=== PATIENT | male | born 1980 | race Hispanic/Latino ===

== ENCOUNTER 2019-01-04 09:30 | Emergency (ER) | payer BC, MEDICAID, OTHER ==
[2019-01-04] MEDS ORDERED: IBUPROFEN 600 MG TABLET ONE (09:53)
== END 2019-01-04 10:22 | disposition home or self-care (01) ==
LOC: EDH 09:30
DX: S92.511A Displaced fracture of proximal phalanx of right lesser toe(s), initial encounter for closed fracture (principal); J45.909 Unspecified asthma, uncomplicated; Z72.0 Tobacco use; W22.03XA Walked into furniture, initial encounter; Y93.89 Activity, other specified; Y92.098 Other place in other non-institutional residence as the place of occurrence of the external cause; Y99.8 Other external cause status
CPT/HCPCS: 73660

== ENCOUNTER 2021-10-18 23:07 | Inpatient (IN) | payer MEDICAID, OTHER ==
[~2021-10-18] VITALS: Ht 167.6 cm; Wt 90.7 kg
[2021-10-19] MEDS ORDERED: KETOROLAC 30MG VIAL (30MG/ML) IV ONE (00:30)
[2021-10-19] MEDS ORDERED: HYDROCODONE/ACETAMINOPHEN 5/325 MG TAB PO ONE (00:30)
[2021-10-19] MEDS ORDERED: CLINDAMYCIN IVPB 900MG/50ML 50 ML IV ONE (00:30)
[2021-10-19] MEDS ORDERED: METRONIDAZOLE 500 MG TABLET PO ONE (00:30)
[2021-10-19] MEDS ORDERED: 0.9%NACL 1000ML 1,000 ML IV ONE ×2 (00:30→03:30)
[2021-10-19 01:14] LABS: BASOPHILS % (AUTO) 0.3 % (0.0-5.0); CREATININE 1.4 mg/dL (0.5-1.5); EOSINOPHILS % (AUTO) 2.3 % (0.0-8.0); HEMATOCRIT 37.5 % (42-54); LYMPHOCYTES % (AUTO) 7.5 % (21.0-51.0); MEAN CORPUSCULAR HEMOGLOBIN 30.2 pg (27.0-33.0); MEAN CORPUSCULAR HGB CONC 34.7 g/dL (32.0-36.0); MONOCYTES % (AUTO) 4.4 % (3.0-13.0); NEUTROPHILS % (AUTO) 84.2 % (40.0-77.0); PLATELET COUNT (AUTO) 211 K/uL (130-400); POTASSIUM 3.2 mmol/L (3.5-5.1); RED BLOOD CELL COUNT(AUTO) 4.31 MIL/uL (4.50-6.20); RED CELL DISTRIBUTION WIDTH 13.8 % (11.0-15.5); WHITE BLOOD COUNT (AUTO) 17.2 K/uL (4.8-10.8)
[2021-10-19 01:19] LABS: BILIRUBIN,TOTAL 0.2 mg/dL (0.2-1.0); TOTAL PROTEIN, SERUM 6.5 g/dL (6.0-8.3)
[2021-10-19] MEDS ORDERED: IOHEXOL 350 MG/ML 100ML INFUS..BTL IV ONE (01:38)
[2021-10-19 01:58] LABS: APPEARANCE,URINE Clear (CLEAR); BILIRUBIN,URINE Negative (NEGATIVE); COLOR,URINE Yellow (YELLOW); GLUCOSE, URINE (UA) Negative (NEGATIVE); KETONES,URINE Negative (NEGATIVE); LEUKOCYTE ESTERASE ,URINE Negative (NEGATIVE); NITRATE,URINE Negative (NEGATIVE); OCCULT BLOOD,URINE Large (NEGATIVE); PH,URINE 5.5 (5.0-8.0); PROTEIN,URINE POS 1+ mg/dL (NEGATIVE)
[2021-10-19 02:13] LABS: BACTERIA,URINE Rare /HPF (None Seen); SQUAMOUS EPITHELIAL CELL,UR Rare /HPF (0-2)
[2021-10-19] MEDS ORDERED: MORPHINE 2 MG SYG IV PRN (04:00)
[2021-10-19] MEDS ORDERED: 0.9%NACL 1000ML 1,914 ML IV ONE (04:00)
[2021-10-19] MEDS ORDERED: KCL 20 MEQ ERTAB PO ONE ×2 (04:00→05:20)
[2021-10-19] MEDS ORDERED: DiphenhydrAMINE HCL 50 MG/ML VIAL IV PRN (04:00)
[2021-10-19] MEDS ORDERED: ONDANSETRON 4MG INJ IV PRN (04:00)
[2021-10-19] MEDS: 0.9%NACL 1000ML 1,000 ML IV SCH ×2 (05:19→14:00)
[2021-10-19] MEDS: ZOSYN 3.375GM +NS 50ML IV SCH ×3 (05:33→21:43)
[2021-10-19 05:40] LABS: AMPHET/METH SCREEN,URINE NEGATIVE (NEGATIVE); BARBITURATE SCREEN, URINE NEGATIVE (NEGATIVE); BENZODIAZEPINES SCREEN,URINE NEGATIVE (NEGATIVE); CANNABINOID SCREEN,URINE POSITIVE (NEGATIVE); COCAINE SCREEN,URINE POSITIVE (NEGATIVE); OPIATE SCREEN,URINE NEGATIVE (NEGATIVE); PHENCYCLIDINE SCREEN,URINE NEGATIVE (NEGATIVE)
[2021-10-19] MEDS: FAMOTIDINE 20MG VIAL IV SCH ×2 (08:10→21:16)
[2021-10-19] MEDS ORDERED: IOHEXOL-350 75 ML VIAL IV ONE (08:18)
[2021-10-19 08:32] LABS: INR 0.99 (0.85-1.15); PROTHROMBIN TIME 10.8 SEC (9.6-11.6)
[2021-10-19 08:33] LABS: PARTIAL THROMBOPLASTIN TIME 33.6 SEC (26.3-35.5)
[2021-10-19] MEDS: MORPHINE 4 MG SYG IV PRN ×3 (11:46→20:08)
[2021-10-19] MEDS ORDERED: METRONIDAZOLE 500MG/100ML BAG 100 ML IVPB SCH (12:00)
[2021-10-19] MEDS: METRONIDAZOLE 500 MG TABLET PO SCH ×3 (13:05→21:16)
[2021-10-19] MEDS ORDERED: 0.9%NACL 50ML 50 ML IV ONE (21:13)
[2021-10-20] MEDS: 0.9%NACL 1000ML 1,000 ML IV SCH (00:05)
[2021-10-20 02:55] VITALS: BP 121/79
[2021-10-20] MEDS: ACETAMINOPHEN 325 MG TAB PO PRN ×2 (03:19→11:03)
[2021-10-20] MEDS ORDERED: ALBU18HF7 IH (03:40)
[2021-10-20] MEDS: ZOSYN 3.375GM +NS 50ML IV SCH (05:29)
[2021-10-20 07:50] LABS: BASOPHILS % (AUTO) 0.5 % (0.0-5.0); HEMATOCRIT 38.3 % (42-54); LYMPHOCYTES % (AUTO) 12.5 % (21.0-51.0); MEAN CORPUSCULAR HEMOGLOBIN 29.3 pg (27.0-33.0); MEAN CORPUSCULAR HGB CONC 32.6 g/dL (32.0-36.0); MEAN CORPUSCULAR VOLUME 89.9 fL (79-99); MONOCYTES % (AUTO) 7.7 % (3.0-13.0); NEUTROPHILS % (AUTO) 76.7 % (40.0-77.0); PLATELET COUNT (AUTO) 198 K/uL (130-400); RED BLOOD CELL COUNT(AUTO) 4.26 MIL/uL (4.50-6.20); RED CELL DISTRIBUTION WIDTH 13.9 % (11.0-15.5); WHITE BLOOD COUNT (AUTO) 10.2 K/uL (4.8-10.8)
[2021-10-20 08:01] LABS: CREATININE 1.4 mg/dL (0.5-1.5); POTASSIUM 3.9 mmol/L (3.5-5.1)
[2021-10-20] MEDS: METRONIDAZOLE 500 MG TABLET PO SCH (08:44)
[2021-10-20] MEDS: FAMOTIDINE 20MG VIAL IV SCH (08:44)
[2021-10-20 09:03] VITALS: BP 138/77
[2021-10-20] MEDS ORDERED: AMOX-426 PO (09:45)
[2021-10-20 11:43] VITALS: BP 129/79
== END 2021-10-20 12:05 | disposition home or self-care (01) | DRG 394 ==
LOC: EDH 23:07 → EDHIP 23:08 → 4BH 10-20 02:54
PROVIDERS: ADMIT Hospitalist; ATTEND Hospitalist
DX: K61.1 Rectal abscess (principal); N17.9 Acute kidney failure, unspecified; K04.7 Periapical abscess without sinus; J45.909 Unspecified asthma, uncomplicated; K62.89 Other specified diseases of anus and rectum; E86.9 Volume depletion, unspecified; Z20.822 Contact with and (suspected) exposure to COVID-19; R74.8 Abnormal levels of other serum enzymes; F17.210 Nicotine dependence, cigarettes, uncomplicated; F14.10 Cocaine abuse, uncomplicated; Z71.89 Other specified counseling
CPT/HCPCS: 36415; 70488; 71045; 74177; 80048; 80053; 80305; 81001; 83605; 85025; 85610; 85651; 85730; 86140; 87040; 87088; 87635; 93005; 99291; G0378; J1885; J2270; J2543; J3490; J7030; Q9967

== ENCOUNTER 2024-04-19 13:01 | Inpatient (IN) | payer OTHER ==
[~2024-04-19] VITALS: Ht 167.6 cm; Wt 70.4 kg
[~2024-04-19 13:01] MED LIST: ALBU18HF7 IH; AMOX-426 PO
[2024-04-19] MEDS: ONDANSETRON ODT 4MG TAB SL ONE (14:52)
[2024-04-19] MEDS: HYDROCODONE/ACETAMINOPHEN 5/325 MG TAB PO ONE (14:52)
[2024-04-19 15:27] LABS: BASOPHILS # (AUTO) 0.04 K/uL (0.00-0.20); BASOPHILS % (AUTO) 0.3 % (0.0-5.0); EOSINOPHILS # (AUTO) 0.34 K/uL (0.00-0.70); EOSINOPHILS % (AUTO) 2.9 % (0.0-8.0); HEMATOCRIT 37.8 % (42-54); IMMATURE GRANULOCYTE ABSOLUTE 0.03 K/uL (0-1); MEAN CORPUSCULAR HEMOGLOBIN 29.8 pg (27.0-33.0); MEAN CORPUSCULAR HGB CONC 33.6 g/dL (32.0-36.0); MEAN CORPUSCULAR VOLUME 88.7 fL (79-99); MONOCYTES # (AUTO) 0.8 K/uL (0.1-1.0); MONOCYTES % (AUTO) 7.2 % (3.0-13.0); NEUTROPHILS # (AUTO) 9.3 K/uL (1.8-7.7); NEUTROPHILS % (AUTO) 80.3 % (40.0-77.0); PLATELET COUNT (AUTO) 279 K/uL (130-400); RED BLOOD CELL COUNT(AUTO) 4.26 MIL/uL (4.50-6.20); RED CELL DISTRIBUTION WIDTH 14.6 % (11.0-15.5); WHITE BLOOD COUNT (AUTO) 11.6 K/uL (4.8-10.8)
[2024-04-19] MEDS: KETOROLAC 30MG VIAL (30MG/ML) IVP ONE (15:54)
[2024-04-19 15:59] LABS: POTASSIUM 4.2 mmol/L (3.5-5.1)
[2024-04-19] MEDS ORDERED: IOHEXOL-350 75 ML VIAL IV ONE (15:59)
[2024-04-19] MEDS: ZOSYN 3.375GM +NS 50ML IV ONE (18:52)
[2024-04-19] MEDS: MORPHINE 2 MG SYG IVP PRN (19:32)
[2024-04-19] MEDS: ZOSYN 3.375GM+NS 50ML 50 ML IV SCH (21:00)
[2024-04-19] MEDS ORDERED: ACETAMINOPHEN 325 MG TAB PO PRN ×2 (21:00)
[2024-04-19] MEDS ORDERED: ONDANSETRON 4MG INJ IV PRN (21:00)
[2024-04-19] MEDS: FAMOTIDINE 20MG TAB PO SCH (21:07)
[2024-04-19 23:00] VITALS: BP 130/89; PULSE 68; RESP 20
[2024-04-19 23:40] VITALS: O2SAT 99
[2024-04-20] VITALS (7 sets, daily range): BP systolic 112–132; BP diastolic 66–89; PULSE 62–87; RESP 17–20; O2SAT 97–98
[2024-04-20 05:55] LABS: BASOPHILS # (AUTO) 0.03 K/uL (0.00-0.20); BASOPHILS % (AUTO) 0.3 % (0.0-5.0); EOSINOPHILS # (AUTO) 0.35 K/uL (0.00-0.70); EOSINOPHILS % (AUTO) 3.2 % (0.0-8.0); HEMATOCRIT 36.4 % (42-54); IMMATURE GRANULOCYTE ABSOLUTE 0.04 K/uL (0-1); LYMPHOCYTES # (AUTO) 1.2 K/uL (1.0-4.8); LYMPHOCYTES % (AUTO) 10.8 % (21.0-51.0); MEAN CORPUSCULAR HEMOGLOBIN 29.5 pg (27.0-33.0); MEAN CORPUSCULAR HGB CONC 33.5 g/dL (32.0-36.0); MEAN CORPUSCULAR VOLUME 87.9 fL (79-99); MONOCYTES # (AUTO) 0.7 K/uL (0.1-1.0); MONOCYTES % (AUTO) 6.3 % (3.0-13.0); NEUTROPHILS # (AUTO) 8.7 K/uL (1.8-7.7); PLATELET COUNT (AUTO) 284 K/uL (130-400); RED BLOOD CELL COUNT(AUTO) 4.14 MIL/uL (4.50-6.20); RED CELL DISTRIBUTION WIDTH 14.5 % (11.0-15.5)
[2024-04-20 06:11] LABS: INR <= 0.93 (0.85-1.15); PROTHROMBIN TIME 10.3 SEC (9.6-11.6)
[2024-04-20 06:12] LABS: PARTIAL THROMBOPLASTIN TIME 28.2 SEC (26.3-35.5)
[2024-04-20 06:15] LABS: BILIRUBIN,TOTAL 0.4 mg/dL (0.2-1.0); CREATININE 0.9 mg/dL (0.5-1.3); MAGNESIUM 1.7 mg/dL (1.80-2.40); POTASSIUM 3.6 mmol/L (3.5-5.1); TOTAL PROTEIN, SERUM 6.2 g/dL (6.0-8.3)
[2024-04-20] MEDS: KETOROLAC 30MG VIAL (30MG/ML) IVP PRN (10:41)
[2024-04-20] MEDS ORDERED: POTASSIUM CHLORIDE 10MEQ/100ML 100 ML IV PRN (19:30)
[2024-04-21] VITALS (28 sets, daily range): BP systolic 108–145; BP diastolic 64–92; PULSE 55–102; RESP 15–19; O2SAT 98–99
[2024-04-21] MEDS: MAGNESIUM 2GM PREMIX 50ML 50 ML IV PRN (00:14)
[2024-04-21] MEDS ORDERED: DEXAMETHASONE SOD PHOSPHATE 4 MG/ML 1ML VIAL ONE (09:00)
[2024-04-21] MEDS ORDERED: KETOROLAC 30MG VIAL (30MG/ML) ONE (09:00)
[2024-04-21] MEDS ORDERED: LIDOCAINE HCL MPF 1% 5ML VIAL ONE (09:00)
[2024-04-21] MEDS ORDERED: MIDAZOLAM HCL 1 MG/ML 2ML VIAL ONE (09:01)
[2024-04-21] MEDS ORDERED: PROPOFOL 10 MG/ML 20ML VIAL IV ONE (09:01)
[2024-04-21] MEDS ORDERED: FENTANYL CITRATE PF 50 MCG/1 ML 2ML VIAL ONE ×2 (09:01→09:30)
[2024-04-21] MEDS ORDERED: ONDANSETRON 4MG INJ ONE (09:01)
[2024-04-21] MEDS: LACTATED RINGERS 1000ML 1,000 ML IV ONE (09:05)
[2024-04-21] MEDS ORDERED: GLYCOPYRROLATE 0.2 MG/ML 5 ML VIAL ONE (09:29)
[2024-04-21] MEDS: ACETAMINOPHEN 1,000 MG/100 ML VIAL IV ONE (10:17)
[2024-04-21] MEDS: MEPERIDINE-PF 25 MG/ML SYG ONE (10:27)
[2024-04-22] VITALS (8 sets, daily range): BP systolic 99–129; BP diastolic 61–77; PULSE 54–71; RESP 16–19; O2SAT 98–99
[2024-04-22 05:23] LABS: BASOPHILS # (AUTO) 0.03 K/uL (0.00-0.20); BASOPHILS % (AUTO) 0.3 % (0.0-5.0); EOSINOPHILS # (AUTO) 0.27 K/uL (0.00-0.70); EOSINOPHILS % (AUTO) 2.7 % (0.0-8.0); HEMATOCRIT 31.9 % (42-54); IMMATURE GRANULOCYTE ABSOLUTE 0.04 K/uL (0-1); LYMPHOCYTES # (AUTO) 1.3 K/uL (1.0-4.8); LYMPHOCYTES % (AUTO) 13.2 % (21.0-51.0); MEAN CORPUSCULAR HGB CONC 33.5 g/dL (32.0-36.0); MEAN CORPUSCULAR VOLUME 89.4 fL (79-99); MONOCYTES # (AUTO) 0.6 K/uL (0.1-1.0); MONOCYTES % (AUTO) 6.2 % (3.0-13.0); NEUTROPHILS # (AUTO) 7.8 K/uL (1.8-7.7); NEUTROPHILS % (AUTO) 77.2 % (40.0-77.0); PLATELET COUNT (AUTO) 249 K/uL (130-400); RED BLOOD CELL COUNT(AUTO) 3.57 MIL/uL (4.50-6.20); RED CELL DISTRIBUTION WIDTH 14.1 % (11.0-15.5); WHITE BLOOD COUNT (AUTO) 10.1 K/uL (4.8-10.8)
[2024-04-22 05:49] LABS: ALBUMIN 2.5 g/dL (3.5-5.0); BILIRUBIN,TOTAL 0.2 mg/dL (0.2-1.0); MAGNESIUM 2.1 mg/dL (1.80-2.40); POTASSIUM 3.2 mmol/L (3.5-5.1); TOTAL PROTEIN, SERUM 5.9 g/dL (6.0-8.3)
[2024-04-22] MEDS ORDERED: POTASSIUM CHLORIDE 10% ELIXIR 20 MEQ/15 ML UDCUP PO PRN (09:00)
[2024-04-22] MEDS ORDERED: POTASSIUM CHLORIDE 20MEQ/100ML 100 ML IV PRN (09:00)
[2024-04-22] MEDS: KCL 20 MEQ ERTAB PO PRN (11:23)
[2024-04-22] MEDS: HYDROMORPHONE 1 MG INJ IV PRN (17:34)
[2024-04-22] MEDS: OXYCODONE/ACETAMIN 5/325MG TAB PO PRN (23:56)
[2024-04-23] VITALS: BP 144/81; PULSE 72; RESP 16
[2024-04-23 03:46] VITALS: BP 111/64; PULSE 70; RESP 16
[2024-04-23 04:45] LABS: BASOPHILS # (AUTO) 0.03 K/uL (0.00-0.20); BASOPHILS % (AUTO) 0.4 % (0.0-5.0); EOSINOPHILS # (AUTO) 0.36 K/uL (0.00-0.70); EOSINOPHILS % (AUTO) 5.3 % (0.0-8.0); HEMATOCRIT 32.6 % (42-54); IMMATURE GRANULOCYTE ABSOLUTE 0.02 K/uL (0-1); LYMPHOCYTES # (AUTO) 1.9 K/uL (1.0-4.8); MEAN CORPUSCULAR HEMOGLOBIN 29.8 pg (27.0-33.0); MEAN CORPUSCULAR HGB CONC 32.5 g/dL (32.0-36.0); MEAN CORPUSCULAR VOLUME 91.6 fL (79-99); MONOCYTES # (AUTO) 0.6 K/uL (0.1-1.0); MONOCYTES % (AUTO) 8.3 % (3.0-13.0); NEUTROPHILS % (AUTO) 58.7 % (40.0-77.0); PLATELET COUNT (AUTO) 256 K/uL (130-400); RED BLOOD CELL COUNT(AUTO) 3.56 MIL/uL (4.50-6.20); RED CELL DISTRIBUTION WIDTH 14.2 % (11.0-15.5); WHITE BLOOD COUNT (AUTO) 6.8 K/uL (4.8-10.8)
[2024-04-23 05:33] LABS: ALBUMIN 2.4 g/dL (3.5-5.0); BILIRUBIN,TOTAL 0.1 mg/dL (0.2-1.0); MAGNESIUM 1.9 mg/dL (1.80-2.40); POTASSIUM 3.9 mmol/L (3.5-5.1); TOTAL PROTEIN, SERUM 5.7 g/dL (6.0-8.3)
[2024-04-23 07:55] VITALS: BP 133/74; PULSE 61; RESP 20
[2024-04-23 08:00] VITALS: O2SAT 100
[2024-04-23 11:31] VITALS: BP 112/89; PULSE 62; RESP 20
== END 2024-04-23 16:20 | disposition home or self-care (01) | DRG 348 ==
LOC: EDH 13:01 → EDHIP 13:02 → OBSVTOIN 13:02 → EDHIP 20:48 → UNDOADMOB 20:48 → 3AH 22:55 → EDHIP 22:55
PROVIDERS: ADMIT Hospitalist; ATTEND Hospitalist
PROC: 0D9Q0ZZ Drainage of Anus, Open Approach (ICD-10-PCS; principal; 2024-04-21 09:00)
DX: K61.1 Rectal abscess (principal); E44.0 Moderate protein-calorie malnutrition; E83.42 Hypomagnesemia; D72.829 Elevated white blood cell count, unspecified; F17.210 Nicotine dependence, cigarettes, uncomplicated; J45.909 Unspecified asthma, uncomplicated; F19.10 Other psychoactive substance abuse, uncomplicated; K62.89 Other specified diseases of anus and rectum; Z82.5 Family history of asthma and other chronic lower respiratory diseases; Z68.25 Body mass index [BMI] 25.0-25.9, adult
CPT/HCPCS: 36415; 72193; 80048; 80053; 83605; 83735; 84145; 85025; 85610; 85730; 87070; 87076; 87077; 87186; 96374; 96375; G0378; J1100; J1170; J1885; J2175; J2250; J2270; J2405; J2543; J2704; J3010; J3475; J3490; J7120; Q9967; A4215; A4221; A4222; A4223; A4452; A4600; A4649; A4663; A4930; A6446

== ENCOUNTER → 2024-04-25 | Outpatient (CLI) | payer OTHER ==
[~2024-04-25] MED LIST changes: -AMOX-426 PO
== END | disposition home or self-care (01) ==
LOC: WHH 11:15
PROVIDERS: ATTEND Family Medicine
DX: S31.819D Unspecified open wound of right buttock, subsequent encounter (principal); J45.909 Unspecified asthma, uncomplicated; L84 Corns and callosities; K61.1 Rectal abscess; F17.290 Nicotine dependence, other tobacco product, uncomplicated; Z79.899 Other long term (current) drug therapy; X58.XXXD Exposure to other specified factors, subsequent encounter
CPT/HCPCS: 99215; A4450